=== PATIENT | female | born 1960 | race Caucasian/White ===

== ENCOUNTER → 2023-11-09 17:22 | Outpatient (REF) | payer BC, SELFPAY | LOC: WDC 17:22 | PROVIDERS: ATTENDING PHYSICIAN Internal Medicine | DX: Z12.31 Encounter for screening mammogram for malignant neoplasm of breast (principal) | CPT/HCPCS: 77063; 77067 ==

== ENCOUNTER → 2023-11-16 15:51 | Outpatient (REF) | payer BC, SELFPAY | LOC: RAD 15:51 | PROVIDERS: ATTENDING PHYSICIAN Internal Medicine | DX: M25.552 Pain in left hip (principal); M54.50 Low back pain, unspecified | CPT/HCPCS: 72110; 73502 ==

== ENCOUNTER → 2024-04-16 09:52 | Outpatient (REF) | payer BC, SELFPAY | LOC: RAD 09:52 | PROVIDERS: ATTENDING PHYSICIAN Nurse Practitioner Adult Health; FAMILY PHYSICIAN Internal Medicine | DX: M25.521 Pain in right elbow (principal) | CPT/HCPCS: 73080 ==

== ENCOUNTER 2024-06-22 16:32 | Emergency (ER) | payer OTHER, SELFPAY ==
[2024-06-22 16:39] VITALS: BP 163/79
[2024-06-22] MEDS: TYLENOL 650 MG PO (19:50)
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
== END 2024-06-22 22:31 | disposition home or self-care (01) ==
LOC: EMR 16:32
PROVIDERS: EMERGENCY PHYSICIAN Emergency Medicine; FAMILY PHYSICIAN Internal Medicine
DX: S16.1XXA Strain of muscle, fascia and tendon at neck level, initial encounter (principal); S00.93XA Contusion of unspecified part of head, initial encounter; Y04.0XXA Assault by unarmed brawl or fight, initial encounter; E78.00 Pure hypercholesterolemia, unspecified
CPT/HCPCS: 99284; 70450; 72125

== ENCOUNTER 2024-09-05 12:12 | Emergency (ER) | payer BC, SELFPAY ==
[2024-09-05 12:14] VITALS: BP 117/97
[2024-09-05 12:45] LABS: % Basophils 0.3 % (0-2); % Eosinophils 0.3 % (0-6); % Immature Granulocytes 0.3 % (0-0.5); % Lymphocytes 28.2 % (20.5-51.1); % Monocytes 6.9 % (1.7-9.3); Absolute Lymphocytes 1.1 10^3/uL (1.2-3.4); Absolute Monocytes 0.3 10^3/uL (0.1-0.6); Absolute Neutrophils 2.5 10^3/uL (1.4-6.5); Hematocrit 43.9 % (37.0-47.0); Hemoglobin 14.6 g/dL (12.0-16.0); Mean Corp Hgb Conc. 33.3 g/dL (33.0-37.0); Mean Corpuscular Hgb 29.1 pg (27.0-31.0); Mean Corpuscular Volume 87.5 fL (81.0-99.0); Mean Platelet Volume 10.2 fL (7.4-10.4); Nucleated Red Blood Cells % 0 %; Platelet Count 178 10^3/uL (130-400); Red Blood Cell Count 5.02 10^6/uL (4.20-5.40); Red Cell Dist. Width 13.1 % (11.5-14.5); White Blood Cell Count 3.9 10^3/uL (4.8-10.8)
[2024-09-05 12:59] LABS: ALT (SGPT) 46 U/L (0-35); AST (SGOT) 41 U/L (14-36); Albumin 4.4 g/dl (3.5-5.0); Alkaline Phosphatase 78 U/L (38-126); Blood Urea Nitrogen 20 mg/dl (7-17); Calcium 8.7 mg/dl (8.4-10.2); Carbon Dioxide 28 mmol/L (22-30); Chloride 100 mmol/L (98-107); Glucose 141 mg/dl (70-99); Potassium 3.8 mmol/L (3.5-5.1); Sodium 139 mmol/L (135-145); Total Bilirubin 0.4 mg/dl (0.2-1.3); Total Protein 6.5 g/dl (6.3-8.2); eGFR > 60.00
[2024-09-05 13:00] LABS: COVID-19 Antigen Negative (Negative)
--- NOTE | 2024-09-05 13:56 | ED.GENMED ---
History of Present Illness
General
Chief Complaint: Cold/Flu/URI Symptoms
Source: patient
Time Seen by Provider: 09/05/24 13:50
History of Present Illness
History of Present Illness:
63-year-old female presents with 4 days worth of cough fatigue fever lightheadedness. She was thought to have the flu but was never tested for and treated by her doctor. She states with the medicine she was given she is no better. She has not
been able to stay hydrated. There is been no vomiting or diarrhea. She notes persistent cough. No other complaints at this time
Past History
Past History
ED Past Medical History: Hypercholesterolemia and Other (Migraines, PTSD)
ED Past Surgical History: and Other (The patient has also had a uterine ablation)
Social History
Tobacco: Non-smoker
Alcohol: Occasional
Drug: None
Living: with family
Employment: Employed
Phy Exam
Physical Exam
Physical Exam:
General: Slightly ill-appearing female no acute respiratory distress
HEENT: NC/AT
Heart: RRR, no murmurs
Lungs: coarse bilaterally, slight wheeze on inspiration
Ext: no cyanosis or edema
Skin: warm, no rash
Course
Orders/Labs/Results
Orders:
Orders
09/05/24 12:26
COVID-19 Antigen Urgent
Source: Nasal Swab
Complete Blood Count/With Diff Urgent
Comprehensive Metabolic Panel Urgent
Influenza A+B Rapid Molecular Urgent
JAE Source: Nasal Swab
Specimen Description:
09/05/24 13:55
0.9% Sodium Chloride 1000 ml [Nss] 1,000 ml IV BOLUS
Ipratropium/Albuterol Sulfate [Duoneb] 3 ml INH R NOW ONE
09/05/24 13:57
Ipratropium/Albuterol Sulfate [Duoneb] 3 ml .ROUTE .STK-MED ONE
Abnormal Lab Results
09/05/24
12:26
WBC 3.9 L 10^3/uL
(4.8-10.8)
Absolute Lymphs (auto) 1.1 L 10^3/uL
(1.2-3.4)
BUN 20 H mg/dl
(7-17)
Glucose 141 H mg/dl
(70-99)
AST 41 H U/L
(14-36)
ALT 46 H U/L
(0-35)
09/05/24 12:26
09/05/24 12:26
Vital Signs
Initial and Last Documented VS:
Initial Vital Signs
Temp Pulse Resp BP Pulse Ox
98.8 F 91 18 117/97 96
09/05/24 12:14 09/05/24 12:14 09/05/24 12:14 09/05/24 12:14 09/05/24 12:14
Last Documented Vital Signs
Temp Pulse Resp BP Pulse Ox
98.8 F 79 20 122/75 96
09/05/24 12:14 09/05/24 15:15 09/05/24 15:15 09/05/24 15:15 09/05/24 15:15
MDM/Problems Addressed
Differential Diagnosis Includes:
Fatigue lightheadedness cough myalgias. Patient tested positive for influenza today. COVID-negative. Looks dry on exam. Will hydrate. DuoNeb ordered.
*Critical Care Note
Total Time (30-74mins, 75-104mins- exclusive of procedures): Not Applicable
Update Note
Update Note:
Patient feeling somewhat improved after nebulizer and fluids. She is currently receiving treatment with Tamiflu for her influenza. Given the wheezing, will send her home with nebulizer and nebulizer solution. Stable for discharge
ED Attending Note
-
Portions of this chart may have been created with voice recognition software.� Occasional wrong word or��sound alike� substitutions may have occurred due to the inherent limitations of voice recognition software.
Discharge Plan
Departure
Patient Disposition: Home (Routine Discharge)
Date of Disposition: 09/05/24
Time of Disposition: 16:44
Patient with high blood pressure during this ER visit?: No
Discharge Problem:
Influenza A
Instructions: Acute Bronchitis, Adult (DC)
Prescriptions:
New
albuterol sulfate 2.5 mg /3 mL (0.083 %) solution for nebulization
2.5 mg inhalation QID PRN (Reason: shortness of breath or wheezing) Qty: 75 0RF
No Action
metoprolol succinate 25 MG tablet extended release 24 hr
50 mg PO HS
Adavent
0.5 mg PO PRN (Reason: anxiety)
simvastatin 20 MG tablet
20 mg PO HS
naproxen sodium 550 MG tablet
550 mg PO PRN (Reason: discomfort)
metoclopramide HCl 10 MG tablet
10 mg PO PRN (Reason: upset stomach)
Zenisamide
300 mg PO HS
naproxen 500 MG tablet
500 mg PO TID PRN (Reason: pain) Qty: 20 0RF
metaxalone [Skelaxin] 800 MG tablet
800 mg PO TIDPRN PRN (Reason: muscle pain) Qty: 12 0RF
Referrals:
Dorene Christianson NP [Family Provider] -
Activity Restrictions/Additional Instructions:
Rest. Continue current medication. Use nebulizer every 4-6 hours as needed for difficulty breathing or cough.
Interventions
Interventions:
*Risk Screen - Suicide Last Done: 09/05/24 12:14
*General Assessment Last Done: 09/05/24 12:14
*Neglect/Abuse Screening Last Done: 09/05/24 12:14
*ED COVID-19 Vaccine History Last Done: 09/05/24 12:14
ED- Pulmonary Assessment Last Done: 09/05/24 14:15
Discharge Date and Time
Print Language: [place]ONG[place]
[2024-09-05] MEDS: DUONEB 3 ML INH (14:02)
[2024-09-05] MEDS: NSS 1000 IV (14:10)
[2024-09-05 15:15] VITALS: BP 122/75
[2024-09-05 17:10] VITALS: BP 124/71
== END 2024-09-05 17:15 | disposition home or self-care (01) ==
LOC: EMR 12:12
PROVIDERS: EMERGENCY PHYSICIAN Emergency Medicine; FAMILY PHYSICIAN Internal Medicine
DX: J10.1 Influenza due to other identified influenza virus with other respiratory manifestations (principal); E78.00 Pure hypercholesterolemia, unspecified
CPT/HCPCS: 94640; 96360; 99284; 80053; 85025; 87502; 87811

== ENCOUNTER → 2024-11-12 13:25 | Outpatient (REF) | payer BC, SELFPAY | LOC: WDC 13:25 | PROVIDERS: ATTENDING PHYSICIAN Internal Medicine | DX: Z12.31 Encounter for screening mammogram for malignant neoplasm of breast (principal) | CPT/HCPCS: 77063; 77067 ==